=== PATIENT | male | born 1960 | race Caucasian/White ===

== ENCOUNTER 2017-02-08 23:23 | Emergency (ER) | payer SELFPAY ==
[2017-02-08 23:34] VITALS: BP 146/92
[2017-02-08] MEDS ORDERED: ONDANSETRON 4 MG TAB.RAPDIS PO ONE (23:45)
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
[2017-02-09] MEDS ORDERED: ACETAMINOPHEN 325 MG TABLET PO ONE (03:35)
== END 2017-02-09 03:48 | disposition home or self-care (01) ==
LOC: ER 23:23
DX: S02.2XXA Fracture of nasal bones, initial encounter for closed fracture (principal); S00.83XA Contusion of other part of head, initial encounter; R04.0 Epistaxis; Y04.0XXA Assault by unarmed brawl or fight, initial encounter
CPT/HCPCS: 99284; 70450; 72125; S0119